=== PATIENT | female | born 1960 | race Caucasian/White ===

== ENCOUNTER 2017-03-13 17:35 | Emergency (ER) | payer OTHER ==
[~2017-03-13] VITALS: Ht 162.6 cm; Wt 75.8 kg
[~2017-03-13 17:35] MED LIST: AMOXIL500 MG OR; ATENOLOL50 MG PO; BACTRIM DS1 TAB PO; LORTAB 10 OR; LORTAB 5 OR; LORTAB5 PO; NO HOME MEDS; OMEPRAZOLE20 MG; OMEPRAZOLE20 MG PO; PENICILLN VK500 MG OR; PERMETHRIN EX; PRILOSEC20 MG/CAP PO; PROTONIX40 MG OR; PROVENTIL IN; PROVENTIL INH17 GM IN; PROVENTIL0.083 % IN; RANITIDINE150 MG PO; ULTRAM50 M1 PO; UNABLE TO RECONCILE; VENTOLIN HFA IN; ZANTAC 150 PO; ZITHROMAX500 MG OR
[2017-03-13 19:39] LABS: HEMATOCRIT 42.8 % (37.0-47.0); HEMOGLOBIN 13.8 g/dl (12.0-16.0); IMMATURE GRANULOCYTES 0.4 % (0.0-1.0); MEAN CELL VOLUME 93.4 fL CALC (80.0-100.0); MEAN CORPUSCULAR HGB 30.1 pG CALC (26.0-32.0); MEAN CORPUSCULAR HGB CONC 32.2 g/L CALC (32.0-36.0); NEUT# 9.63 thou/uL (2.00-7.15); RED BLOOD COUNT 4.58 mill/uL (4.20-5.60); RED CELL DISTRI WIDTH 13.3 % (11.5-15.5)
[2017-03-13 20:02] LABS: ALBUMIN 4.7 g/dL (3.2-5.0); ALKALINE PHOSPHATASE 107 u/l (38-126); ANION GAP 14 (6-22 (CALC)); BILIRUBIN, TOTAL 0.5 mg/dL (0.0-1.4); BUN 9 mg/dL (7-17); BUN/CREATININE RATIO 12 (12-20 (CALC)); CALCIUM 9.5 mg/dL (8.4-10.2); CARBON DIOXIDE 29 mmol/l (22-30); CHLORIDE 105 mmol/l (95-108); CREATININE 0.7 mg/dL (0.5-1.0); GFR > 60 ML/MIN (>=60 (CALC)); GFR FOR AFR.AMER. > 60 ML/MIN (>=60 (CALC)); GLUCOSE 123 mg/dL (65-105); POTASSIUM 4.5 mmol/l (3.5-5.1); SGOT/AST 28 u/l (14-36); SGPT/ALT 38 u/l (9-52); SODIUM 144 mmol/l (137-146); TOTAL PROTEIN 8.2 g/dL (6.3-8.2)
[2017-03-13 20:11] LABS: MYOGLOBIN 22 ng/mL (0 - 62)
[2017-03-13] MEDS ORDERED: AMOXICILLIN500 MG PO (20:31)
[2017-03-13 20:35] VITALS: BP 152/84
== END 2017-03-13 20:38 | disposition left against medical advice (07) | DRG 607 ==
LOC: ED 17:35
PROVIDERS: Emergency Medicine
DX: R22.0 Localized swelling, mass and lump, head (principal); M79.89 Other specified soft tissue disorders; F17.210 Nicotine dependence, cigarettes, uncomplicated; I10 Essential (primary) hypertension; J44.9 Chronic obstructive pulmonary disease, unspecified; Z91.19 Patient's noncompliance with other medical treatment and regimen

== ENCOUNTER 2017-05-20 19:20 | Emergency (ER) | payer OTHER ==
[~2017-05-20] VITALS: Ht 162.6 cm; Wt 75.0 kg
[~2017-05-20 19:20] MED LIST changes: +AMOXICILLIN500 MG PO
[2017-05-20 20:22] LABS: HEMATOCRIT 40.4 % (37.0-47.0); HEMOGLOBIN 12.9 g/dl (12.0-16.0); IMMATURE GRANULOCYTES 0.4 % (0.0-1.0); MEAN CELL VOLUME 92.7 fL CALC (80.0-100.0); MEAN CORPUSCULAR HGB 29.6 pG CALC (26.0-32.0); MEAN CORPUSCULAR HGB CONC 31.9 g/L CALC (32.0-36.0); NEUT# 10.52 thou/uL (2.00-7.15); RED BLOOD COUNT 4.36 mill/uL (4.20-5.60); RED CELL DISTRI WIDTH 13.3 % (11.5-15.5)
[2017-05-20 20:29] LABS: ALBUMIN 4.2 g/dL (3.2-5.0); ALKALINE PHOSPHATASE 115 u/l (38-126); ANION GAP 16 (6-22 (CALC)); BILIRUBIN, TOTAL 0.4 mg/dL (0.0-1.4); BUN 14 mg/dL (7-17); BUN/CREATININE RATIO 15 (12-20 (CALC)); CALCIUM 9.8 mg/dL (8.4-10.2); CARBON DIOXIDE 28 mmol/l (22-30); CHLORIDE 103 mmol/l (95-108); GFR 58 ML/MIN (>=60 (CALC)); GFR FOR AFR.AMER. > 60 ML/MIN (>=60 (CALC)); GLUCOSE 91 mg/dL (65-105); POTASSIUM 4.2 mmol/l (3.5-5.1); SGOT/AST 22 u/l (14-36); SGPT/ALT 27 u/l (9-52); SODIUM 143 mmol/l (137-146); TOTAL PROTEIN 7.2 g/dL (6.3-8.2)
[2017-05-20 21:12] VITALS: BP 153/88
== END 2017-05-20 21:13 | disposition home or self-care (01) | DRG 607 ==
LOC: ED 19:20
PROVIDERS: Emergency Medicine
DX: R22.0 Localized swelling, mass and lump, head (principal); M79.89 Other specified soft tissue disorders; F17.210 Nicotine dependence, cigarettes, uncomplicated; J44.9 Chronic obstructive pulmonary disease, unspecified; I10 Essential (primary) hypertension

== ENCOUNTER 2018-05-19 12:31 | Inpatient (IN) | payer OTHER ==
[2018-05-19] VITALS (26 sets, daily range): BP systolic 95–151; BP diastolic 67–89
[~2018-05-19] VITALS: Ht 162.6 cm; Wt 54.6 kg
--- NOTE | 2018-05-19 12:31 | NUR ---
PT TO ROOM 10 BY EMS STRETCHER. PT IN TRIPOD POSITION AT THIS TIME WITH MASK ON 4 L. PT 98 %. PT CONVERSATIONALLY DYSPNEIC AND APPEARS TIRED. MD AT BEDSIDE.
--- NOTE | 2018-05-19 12:40 | NUR ---
AT BEDSIDE PREPARING TO INTUBATE PT. PER EMS PT WAS GIVEN 1 DUONEB AND 125 MG OF SOLUMEDROL. PT VITALS 1192/128, HR 118, SO02 100 ON HI FLOW 02 VIA MASK. RR 42. 20 MG ETOMIDATE IVP BY DR LOPEZ AT 1240. 100 MG OF ROCURONIUM IVP BY JABIER ANDERSON AT 1242. 7.5 ET TUBE PLACED BY DR LOPEZ AT 1243. POSITIVE COLOR CHANGE NOTED AND BILATERAL LS AUSCULTATED BY DR LOPEZ. PROPOFOL INFUSION INITIATED BY JABIER ANDERSON RN AT 30 MCG/KG/MIN
--- NOTE | 2018-05-19 12:41 | NUR ---
ET NOTED TO BE 19 AT THE LIP, COMMERCIAL TUBE ROSE PLACED AND IS AT 22 TO THE TUBE ROSE. PT REMAINS SEDATED AT THIS TIME.
--- NOTE | 2018-05-19 12:52 | NUR ---
ATTEMPT [address] LOPEZ TO OBTAIN LEFT SIDED IJ WAS UNSUCCESSFUL D/T PALPABLE SWELLING TO BILATERAL NECK.
--- NOTE | 2018-05-19 13:05 | NUR ---
CENTRAL LINE PLACED TO RIGHT FEMORAL WITH NO DIFFICULTY BY DR LOPEZ.
[2018-05-19 13:27] LABS: IMMATURE GRANULOCYTES 1.1 % (0.0-5.0); MEAN CORPUSCULAR HGB 31.6 pG CALC (26.0-32.0); NEUT# 15.69 thou/uL (2.00-7.15); RED CELL DISTRI WIDTH 13.7 % (11.5-15.5)
[2018-05-19 13:28] LABS: HEMATOCRIT 46.5 % (37.0-47.0); HEMOGLOBIN 15.8 g/dl (12.0-16.0)
[2018-05-19 13:39] LABS: ALBUMIN 4.6 g/dL (3.2-5.0); ALKALINE PHOSPHATASE 80 u/l (38-126); ANION GAP 18 (6-22 (CALC)); BILIRUBIN, TOTAL 1.8 mg/dL (0.0-1.4); BUN 13 mg/dL (7-17); BUN/CREATININE RATIO 36 (12-20 (CALC)); CARBON DIOXIDE 28 mmol/l (22-30); CHLORIDE 92 mmol/l (95-108); CREATININE 0.4 mg/dL (0.5-1.0); GFR > 60 ML/MIN (>=60 (CALC)); GFR FOR AFR.AMER. > 60 ML/MIN (>=60 (CALC)); POTASSIUM 4.1 mmol/l (3.5-5.1); SGOT/AST 35 u/l (14-36); TOTAL PROTEIN 7.4 g/dL (6.3-8.2)
[2018-05-19 13:40] LABS: SODIUM 134 mmol/l (137-146)
--- NOTE | 2018-05-19 13:43 | NUR ---
IV ABX INITAITED PER ORDERED. PT REMAINS SEDATED, PROPOFOL AT 40 MCG/KG/MIN.
--- NOTE | 2018-05-19 14:00 | NUR ---
FAMILY AT BEDSIDE. PER FAMILY PT HAS LARGE MASS TO NECK THAT THEY BELIEVE IS CANCEROUS. PT DECIDED APPROX 4 DAYS PRIOR TO STOP ALL TREAMENTS FOR CANCER. FAMILY WAS NOT AT THE HOUSE WHEN EMS WAS CALLED AND ARE UNAWARE OF WHEN PT'S LAST KNOWN WELL WAS. FAMILY REPORTS HOSPICE WAS CONSULTED AND A NURSE WAS COMING TO HER HOUSE ON 05/21/18. FAMILY IS NOT AWARE OF DNR STATUS. MD AT BEDSIDE WITH PT.
--- NOTE | 2018-05-19 14:39 | NUR ---
FAMILY UPDATED ON PLAN OF CARE AND ADMISSION.
--- NOTE | 2018-05-19 14:50 | NUR ---
STRAIGHT CATH URINE SAMPLE COLLECTED. PT NOTED TO BE BLINKING AND SLIGHT MOVING OF HER HEAD. MD NOTIFIED, AWAITING NEW ORDERS. PROPOFOL TITRATED UP TO 50 MCG/MIN.
--- NOTE | 2018-05-19 15:30 | NUR ---
PT REMAINS SEDATED AT THIS TIME. PUPILS PINPOINT AND FIXED. PT'S FAMILY AWARE OF PLAN FOR TRANSFER TO ICU. PT'S MEDICATIONS AT BEDSIDE.
[2018-05-19 15:34] LABS: URINE BILIRUBIN - DIPSTICK NEGATIVE (NEGATIVE); URINE BLOOD DIPSTICK NEGATIVE (NEGATIVE); URINE COLOR YELLOW; URINE GLUCOSE - DIPSTICK NEGATIVE (NEGATIVE); URINE KETONE NEGATIVE (NEGATIVE); URINE LEUK ESTERASE NEGATIVE (NEGATIVE); URINE NITRITE - DIPSTICK NEGATIVE (Negative); URINE PROTEIN - DIPSTICK 30 mg/dL (NEG-TRACE); URINE UROBILINOGEN - DIPSTICK 0.2 E.U./dL (0.2)
[2018-05-19 15:41] LABS: BARBITURATES NEGATIVE (NEGATIVE); COCAINE NEGATIVE (NEGATIVE); METHADONE NEGATIVE (NEGATIVE); TETRAHYDROCANNABIONOL NEGATIVE (NEGATIVE); TRICYLIC ANTIDEPRESSANTS NEGATIVE (NEGATIVE)
[2018-05-19 15:42] LABS: OXCYCODONE NEGATIVE (NEGATIVE)
--- NOTE | 2018-05-19 15:43 | NUR ---
REPORT TO MATI VILLALTA.
--- NOTE | 2018-05-19 16:00 | NUR ---
16 F STEIN PLACED. 500 MLS OF CLEAR, YELLOW URINE NOTED.
[2018-05-19 16:11] LABS: URINE MUCUS FEW hpf (NONE-FEW); URINE SQUAMOUS EPITHELIAL CELL FEW EPI/hpf (0-FEW)
--- NOTE | 2018-05-19 16:15 | NUR ---
Admission Note Report Given to: MATI MCGUIRE Transported by: Wheelchair X Stretcher Transported with: X Nurse Transporter X Patent IV X O2 X News Clerk PT TRANSPORTED TO ICU 8 WITH RT AND NURSING BLINDSTITCH LAPEL PADDER IN STABLE CONDITION WITH BVM. CARE RELINQUISHED TO MATI MCGUIRE.
--- NOTE | 2018-05-19 16:16 | NUR ---
PT ARRIVED VIA STRETCHER WITH STAFF, IV SITES , STEIN IN PLACE, NGT, INTUBATED IN PLACE. PT RESTING COMFORTABLY. WITH WRIST RESTRAINTS IN PLACE.
--- NOTE | 2018-05-19 16:16 | NUR ---
female pt received to ICU bed 8 via stretcher accompanied by Gloria Julien, RN, Jessica Price, RN and Adalgisa Gonzalez, RT; pt transferred to bed x4 assist; assessment completed at this time; no family present; pt in no apparent distress; pupils pin point/ no reactive at this time; sedated but arousable to tactile stimuli; resp unlabored; lungs coarse with wheezing throughout; skin color wnl; vent intact and patent with settings of AC, rate 18, TV 450, Peep 5.0, FiO2 60%; 7.5 oral ETT intact secured at the 22cm device cain; o2 sat 100%; hr reg; sr on monitor; weak pulses; no edema noted; abd soft with bs absent; no bm noted per journalists and other writers; redman to gravity draining clear yellow urine; cath cain intact to left upper thigh; #20 ems site in rh patent with diprivan gtt infusing at 50mcg/kg/min; dose bases on 70KG weight; weight adjusted to 55 kg per bedscale; TLC intact to right femoral; lumens flushed and patent with blood aspirate noted; bruising noted to bilat inner forearms; firm mass/ edema noted to right neck; repositioned; will continue to monitor
--- NOTE | 2018-05-19 16:45 | NUR ---
ASSESSMENT IS COMPLETED: WHEEZING NOTED,. IV SITE IS FREE FROM REDNESS OR EDEMA. FLUSHES WELL. SCD'S IN PLACE. STEIN DRAINING YELLOW URINE. HR IS REG PULSES ARE STRONG ON RADIAL SLUGGISH ON PEDAL, ABD IS SOFT WITH HYPO BS, NGT AT LIS, INTUBATED IS SECURED IN MOUTH. CONTINUE TO OSBERVE AND MONITOR.,
--- NOTE | 2018-05-19 17:35 | NUR ---
Dr Velasquez called per speech writer; updated on pt condition; orders received and place on chart
[2018-05-19] MEDS ORDERED: ALPRAZOLAM0.5 MG PO (17:37)
[2018-05-19] MEDS ORDERED: DEXAMETHASON2 MG PO (17:38)
[2018-05-19] MEDS ORDERED: LEVOTHYROXIN50 MCG PO (17:39)
[2018-05-19] MEDS ORDERED: PREDNISONE10 MG PO (17:39)
[2018-05-19] MEDS ORDERED: CETIRIZINE10 MG PO (17:40)
[2018-05-19] MEDS ORDERED: GABAPENTIN100 MG PO (17:41)
[2018-05-19] MEDS ORDERED: OMEPRAZOLE10 MG PO (17:41)
[2018-05-19] MEDS ORDERED: ATENOLOL50 MG PO (17:42)
[2018-05-19] MEDS ORDERED: PANTOPRAZOLE SO40 MG PO (17:43)
--- NOTE | 2018-05-19 18:21 | NUR ---
SPOKE WITH FAMILY MEMBER RE: MEDICATIONS AND HISTORY. IV SITES ARE FREE FROM REDNESS OR EDEMA.CONTINUE TO OBSERVE AND MONITOR. STEIN INTACT, NGT DRAINING LIGHT GREEN FLUID. SUCTIONED COMPLETED BY [facility]PIRATORY CHANGED THE MOUTH GUARD. PT TOLERATED WELL CONITNUES WITH DEEP SEDATION. WRIST RESTRAINTS IN USE.
--- NOTE | 2018-05-19 19:07 | NUR ---
SWABBED PT FOR MRSA PROTOCOL, GAVE REPORT TO ONCOMING SHIFT.
--- NOTE | 2018-05-19 19:10 | NUR ---
vent cont assisted by pt. wheezing thruout with diminished breath sounds bibas. school lunch monitor shows sinus rhythm. rt fem tlc in place. ns infusing @ 80cchr diprivan infusing @ 50mcg/kg/min. og tube to lis draining green. redman cath in place. urine cloudy yellow. bilat scds cont. turned & repositioned. brother @ bedside.
--- NOTE | 2018-05-19 22:00 | NUR ---
vent cont assisted by pt. doctor chiropractic shows sinus rhythm hr 80. brother remains @ bedside.
[2018-05-20] VITALS (61 sets, daily range): BP systolic 64–164; BP diastolic 00–104
--- NOTE | 2018-05-20 00:01 | NUR ---
vent cont assisted by pt. cardiac nurse specialist shows sinus jai hr 58. brother @ bedside.
--- NOTE | 2018-05-20 02:15 | NUR ---
bp 64/49 per monitor. 60/50 manually. ns bolus began. dr anthony notified. orders rec'd. leanne (brother) called. female family member answered phone. notified of change in condition. admits "we're on our way."
--- NOTE | 2018-05-20 02:30 | NUR ---
family members here. spoke @ length about pts condition. leanne admits "she doesn't want anything done." leanne speaking of dnr status. dr anthony notified. orders rec'd.
--- NOTE | 2018-05-20 04:00 | NUR ---
cardiac sonographer shows sinus jai hr 49-58. multi family members @ bedside.
--- NOTE | 2018-05-20 04:30 | NUR ---
ngt output dk brown coffee ground appearing drainage.
--- NOTE | 2018-05-20 05:00 | NUR ---
family @ bedside. refused lab work abgs & cxr.
--- NOTE | 2018-05-20 06:00 | NUR ---
manager monitoring shows sinus jai hr 52. family remains @ bedside & are aware of pts condition. has had 150cc uop tonite.
--- NOTE | 2018-05-20 07:15 | NUR ---
ASSESSMENT IS COMPLETED: IV SITES ARE FREE FROM REDNESS OR EDEMA. HR IS REG,PULSES ARE STRONG X4, ABD IS SOFT WITH ACTIVE BS. BREATH SOUNDS ARE WHEZING AND DIMINISHED. VENTED WITH PEEP 5, RATE 18, FIO2 40%, TIDAL VOLUME 450. STEIN INTACT DRAINING CLOUDY YELLOW URINE. NGT HAS LIS WITH DARK BROWN FLUID EXPELLING. SCD'S IN PLACE. HRT MONITOR IN PLACE. FAMILY AT BEDSIDE, MOUTH CARE COMPLETED/ CONTINUE TO OSBERVE AND MONITOR,
--- NOTE | 2018-05-20 09:00 | NUR ---
intubated and sedated; no apparent distress noted; diprivan gtt continues at 50 mcg/kg/min; levopedh gtt continues at 8mcg/min; will continue to monitor
--- NOTE | 2018-05-20 09:15 | NUR ---
PT IS RESTING COMFORTABLY WITH THE VENT. FAMILY IN THE ROOM. IV SITES ARE FREE FROM REDNESS OR EDEMA. NO DISTRESS NOTED. NGT CLAMPED FOR MEDICATIONS WITH DARK GREEN GASTRIC CONTENTS. STEIN DRAINING YELLOW WITH SEDIMENT
--- NOTE | 2018-05-20 09:58 | NUR ---
MOUTH CARE GIVEN TO PT. SUCTIONED SOME PHLEGMN, REATTATCHED NGT TO SUCTIONING. PT NOT RESPONDING TO VERBAL STIMULI CONTINUES IN DEEP SEDATION WITH VENT. FAMILY STEPPED OUT AND WILL RETURN
--- NOTE | 2018-05-20 10:40 | NUR ---
TITRATING THE LEVOPHED DOWN PER MD. TOLERATING WELL FAMILY IN THE ROOM.
--- NOTE | 2018-05-20 11:01 | NUR ---
IN TO VISIT WITH FAMILY , EXPLAINING THE PROCESS OF EITHER KEEPING PT SEDATED. OR LETTING HER GO PEACEFULLY. IV SITE IS FREE FROM REDNESS OR EDEMA. FAMILY IS MAKING A DECISION.
--- NOTE | 2018-05-20 13:10 | NUR ---
FAMILY WILL LET US KNOW WHEN THEY ARE READY THEN RESPIRATORY WILL BE CALLED
--- NOTE | 2018-05-20 14:00 | NUR ---
DIPRIVAN WAS STOPPED PER MD ORDER, PT HAS BEEN EXTUBATED. INQUIRED IF FAMILY WANTED TO HAVE US WEAN THE MEDICATION OFF TO SEE IF SHE RESPONDS , STATED" NO , I JUST WANT THIS TO FINISH, I CAN'T HANDLE THIS RIGHT NOW , FROM THE BROTHER". FAMILY REMAINS IN THE ROOM. TUBE BEING EXTUBATED AND NGT REMOVED.
--- NOTE | 2018-05-20 14:32 | NUR ---
MEDICATION WAS GIVEN TO ASSIST PT IN TO RELAX, FAMILY AT BEDSIDE. NOT WANTING PT TO SUFFER. TALKING WITH PT AND COMFORTING HER TO KEEP HER CALM.
--- NOTE | 2018-05-20 14:40 | NUR ---
OTHER MEDICATIONS GIVEN TO ASSIST WITH DISCOMFORT , RESPIRATIONS BEGAN DIMINISHING. HR COMING DOWN. FAMILY REMAINS IN THE ROOM. IV SITE FLUSHABLE. CONTINUE TO OSBERVE AND MONITOR.
--- NOTE | 2018-05-20 15:01 | NUR ---
PT STOPPED BREATHING , CHECKED APICAL HRT RATE. NO LONGER BEATING. FAMILY IN THE ROOM. TIME OF EXPIRATION. NOTIFIED DR. YOUNG RE: .
--- NOTE | 2018-05-20 15:14 | NUR ---
SPOKE WITH JALYN AT [facility] RE: PT. WAITING FOR A RETURN CALL FROM [facility]. ALL BELONGINGS SENT WITH FAMILY. PT CONTINUES TO HAVE [address] ON FINGERS[address]
--- NOTE | 2018-05-20 16:51 | NUR ---
SPOKE WITH VERA AT [facility] PT IS A CANDIDATE FOR [facility]. NOT AN ME CASE.
--- NOTE | 2018-05-20 16:59 | NUR ---
SPOKE WITH ARLYN AT [facility] [place] [facility] WILL HAVE SOMEONE COME AND MANAGER GENERATION THE BODY.
--- NOTE | 2018-05-20 17:48 | NUR ---
KIM FLOOD CAME AND PICKED UP PT.. ALL PAPERS SIGNED. IV SITE TAKEN OUT BY Chaim KATHLEEN RN. CATHETER INTACT. STEIN TAKEN OUT INTACT,
== END 2018-05-20 15:01 | disposition expired | DRG 208 ==
LOC: ED 12:31 → ED-I 12:49 → ED 14:10 → ICU 14:11
PROVIDERS: Family Medicine; ADMIT Internal Medicine; ATTEND Internal Medicine
PROC: 0BH17EZ Insertion of Endotracheal Airway into Trachea, Via Natural or Artificial Opening (ICD-10-PCS; principal; 2018-05-19)
PROC: 5A1935Z Respiratory Ventilation, Less than 24 Consecutive Hours (ICD-10-PCS; 2018-05-19)
PROC: 06HM33Z Insertion of Infusion Device into Right Femoral Vein, Percutaneous Approach (ICD-10-PCS; 2018-05-19)
DX: J96.00 Acute respiratory failure, unspecified whether with hypoxia or hypercapnia (principal); C33 Malignant neoplasm of trachea; C34.90 Malignant neoplasm of unspecified part of unspecified bronchus or lung; R57.8 Other shock; J44.9 Chronic obstructive pulmonary disease, unspecified; I12.9 Hypertensive chronic kidney disease with stage 1 through stage 4 chronic kidney disease, or unspecified chronic kidney disease; N18.3 Chronic kidney disease, stage 3 (moderate); E86.9 Volume depletion, unspecified; M19.90 Unspecified osteoarthritis, unspecified site; F17.200 Nicotine dependence, unspecified, uncomplicated; Z92.21 Personal history of antineoplastic chemotherapy; Z92.3 Personal history of irradiation; Z51.5 Encounter for palliative care; Z66 Do not resuscitate
CPT/HCPCS: J1650; J2060; S0164